=== PATIENT | female | born 1950 | race Caucasian/White ===

== ENCOUNTER 2016-06-28 00:08 | Day surgery (SDC) | payer MEDICARE ==
[~2016-06-28] VITALS: Ht 157.5 cm; Wt 52.9 kg
[2016-06-28] VITALS (16 sets, daily range): BP systolic 128–158; BP diastolic 72–89; PULSE 63–79; RESP 10–20; O2SAT 95–99
[~2016-06-28 00:08] MED LIST: ALBU8.5H2 INHALATION; AMLO5TAB2 PO; APIX5TAB PO; CHOL10008 PO; CYAN500 PO; DIVA250T12 PO; FLC50T PO; LEVO88CA2 PO; METO25TA3 PO; TRAZ-118 PO
[2016-06-28] MEDS ORDERED: MetoCLOpramide 5 mg/mL 2 mL Inj ONE (00:09)
[2016-06-28] MEDS ORDERED: Phenylephrine/NS-PF 100 mCg/mL 5 mL Syringe IVPUSH ONE (00:09)
[2016-06-28] MEDS ORDERED: Propofol 10,000 mCg/mL 20 mL Inj ONE (00:09)
[2016-06-28] MEDS ORDERED: Dexamethasone 4 mg/mL Inj ONE (00:09)
[2016-06-28] MEDS ORDERED: Ondansetron 2 mg/mL 2 mL Inj ONE (00:09)
[2016-06-28] MEDS ORDERED: fentaNYL-PF 50 mCg/mL 2 mL Inj ONE (00:09)
[2016-06-28] MEDS ORDERED: Succinylcholine Chloride 20 mg/mL 5 mL Inj ONE (00:09)
[2016-06-28] MEDS ORDERED: Rocuronium 10 mg/mL 5 mL Inj ONE (00:09)
[2016-06-28] MEDS ORDERED: Lidocaine PF 1% 30 mL Inj ONE (00:09)
[2016-06-28] MEDS ORDERED: Lactated Ringer's 1,000 ML IV SCH ×2 (05:00→12:44)
[2016-06-28] MEDS ORDERED: 0.9% Sodium Chloride 1,000 ML IV SCH (05:59)
[2016-06-28] MEDS ORDERED: Benzoc-Butamben-Tetraca Spray 20 Gm Spray TOPICAL ONE (06:00)
[2016-06-28] MEDS ORDERED: Vancomycin Inj 1,000 MG in IV Premix 1 EACH IV SCH (06:00)
[2016-06-28 06:57] LABS: BASOPHILS % (AUTO) 0.6 % (0-3); EOSINOPHILS % (AUTO) 2.7 % (0-5); INR 0.95 ratio; MONOCYTES % (AUTO) 9.5 % (4-12); Mean Corpuscular Hemoglobin 30.9 pg (27.0-35.0); Mean Corpuscular Volume 94.4 fL (81-100); NEUTROPHILS % (AUTO) 53.3 % (40-74); Platelet Count 274 bil/L (150-400)
[2016-06-28] MEDS ORDERED: Heparin 1,000 Units/500 mL NS Premix IV ONE (08:09)
[2016-06-28] MEDS ORDERED: Heparin 10,000 Unit/1,000 mL NS Premix IV ONE (08:10)
[2016-06-28] MEDS ORDERED: Heparin 1,000 Unit/mL 10 mL Inj ONE ×2 (08:10→08:24)
[2016-06-28] MEDS ORDERED: Heparin 25,000 Unit/500 mL 0.45% NS Premix IV ONE (08:10)
[2016-06-28] MEDS ORDERED: Heparin 1,000 Unit/1,000mL NS Premix IV ONE (08:10)
[2016-06-28] MEDS ORDERED: 0.9% Sodium Chloride 500 ML ONE (08:10)
--- NOTE | 2016-06-28 08:17 | PCM.HPANE ---
Patient Data Date of Service: Jun 28, 2016 Surgeon Admitting Provider: Attending Provider:Peewee Tavarez MD Primary Care Physician:Ashia Tran MD Other Provider:Gabby Byrd Anesthesia Reason for Visit Paroxysmal Atrial Fibrillation Ht/WT & BMI Height (Feet): 5 Height (Inches): 2.00 Weight (Kilograms): 53.000 Body Mass Index 21.50 Allergies Coded Allergies: Sulfa (Sulfonamide Antibiotics) (Verified Allergy, Intermediate, Rash, 06/28) Past Anesthesia History Anesthesia History: Denies:: Anesthesia Reactions, Fam Anesthesia Reaction, Fam Malignant Hypertherm, Malignant Hyperthermia Diabetes History Hx Diabetes?: No MRSA MRSA: No Medications Last Dose Blood Thinner: Jun 27, 2016 Hypertension Medication: Yes Home Meds Incl Beta Nichelle: Yes (299) Date Beta Nichelle Taken: Jun 28, 2016 Time Beta Nichelle Taken: 03:00 Reported Medications Cholecalciferol (Vitamin D3) (Vitamin D3)1,000 Unit Tab.chew1,000 Unit PO DAILY 06/27/16 Cyanocobalamin (Vitamin B12)500 Mcg Vcuzxo065 Mcg PO DAILY 06/27/16 Trazodone 100 Mg [id number] Mg PO HS Ref 0 06/27/16 Metoprolol Succinate ER (Toprol XL)25 Mg Jhzuwk05 Mg PO BID Ref 0 06/27/16 Levothyroxine (Tirosint)88 Mcg Gjkzens66 Mcg PO DAILY 06/27/16 Flecainide Acetate 50 Mg Iozrtc86 Mg PO BID 30 Days 06/27/16 Apixaban (Eliquis)5 Mg Tablet5 Mg PO BID 06/27/16 Divalproex ER 250 Mg Tab.er.90b945 Mg PO HS Ref 0 *DAILY DOSING ONLY* Swallowed whole without chewing to avoid local irritation of the mouth and throat. 06/27/16 Amlodipine 5 Mg Tablet2.5 Mg PO DAILY Ref 0 06/27/16 Albuterol HFA (Proair HFA)8.5 Gm Hfa.aer.ad2 Puffs INHALATION Q4H #1 INHALER 06/27/16 History History of ENT Problems?: No Hx of Heart Problems?: Yes Cardiovascular History: Positive for:: Chest Pain (occassional when in atrial fibrillation) Hypertension Irregular Heartbeat (intermittent atrial fibrillation) Other Cardiac History: pt here today for T.E.E. and atrial fib ablation Hx of Respiratory Problem?: No Respiratory History: Positive for:: Asthma (occassionaly uses albuterol) Other Resp Pertinent History: albuterol 1x q6mo's Neurological History: Positive for:: TIA (TIA's x 2 episodes - 2013 - no residual) Denies:: Seizures Hx of GI Problems?: No Gastrointestinal History: Positive for:: Diverticulitis Denies:: Gastroesphageal Reflux Musculoskeletal History: Positive for:: Joint Replacement (left hip replacement 2009) Hx of Psycho/Social Problems?: Yes Other Psych Pertinent History: bipolar disorder Hx Surgeries?: Yes Hx Any Other Health Problems?: No Other History: Positive for:: Hospitalization (TIA, hip surgery) History Blood Transfusions: Positive for:: Accept Blood Products? Denies:: Blood Transfusions Hx Alcohol Use: Yes (occassional)Hx Substance Use: No Stop/Bang Treated for Sleep Apnea?: Yes Do You Have a CPAP Machine?: No (non-compliant) NELSY Risk Assessment: High Risk, =/>3 Yes NELSY Category 1: Yes Risk Assessment Category Category 1A: Patient has history of documented sleep apnea, and HAS NOT received any narcotic, sedative or anesthesia administration during this stay. Category 1B: Patient has history of documented sleep apnea, and HAS received any narcotic , sedative or anesthesia administration during this stay Category 2: Patient has SUSPECTED Obstructive Sleep Apnea, and HAS received any narcotic , sedative or anesthesia administration during this stay. Category 3: Patient has SUSPECTED Obstructive Sleep Apnea and HAS NOT received narcotic, sedative or anesthesia administration during this stay. Category 4: Outpatient in Procedural Areas with known sleep apnea or who screen positive for High Risk via the STOP/BANG questionnaire. Exam Exam Vital Signs Vital Signs Date Time Temp Pulse Resp B/P Pulse Ox O2 Delivery O2 Flow Rate FiO2 06/28/16 06:33 36.6 63 10 137/74 97 Room Air General Appearance: Alert, Oriented X3, Cooperative, No Acute Distress HEENT/AIRWAY: MP 2, Neck Movement (FROM), Mouth Opening (>3), Other (TMD>3, poor dentition) Lungs: Clear to Auscultation, Clear to Percussion, Normal Air Movement Heart: Exam Unremarkable, Regular Rate/Rhythm, Normal S1, Normal S2, No Murmurs /Rubs/Gallops Meds/Labs/Diagnostics Labs Test 06/28/16 06:15 White Blood Count 6.7th/mm3 (3.8-10.1) Red Blood Count 3.95mil/mm3 (3.90-5.20) Hemoglobin 12.2g/dL (12.0-15.6) Hematocrit 37.3% (35.0-46.0) Mean Corpuscular Volume 94.4fL (81-100) Mean Corpuscular Hemoglobin 30.9pg (27.0-35.0) Mean Corpuscular Hemoglobin Concent 32.7% (32.0-37.0) Red Cell Distribution Width 12.7% (12.3-15.4) Platelet Count 274bil/L (150-400) Neutrophils (%) (Auto) 53.3% (40-74) Lymphocytes (%) (Auto) 33.8% (14-46) Monocytes (%) (Auto) 9.5% (4-12) Eosinophils (%) (Auto) 2.7% (0-5) Basophils (%) (Auto) 0.6% (0-3) Hold Purple Top Tube Received (Received) Prothrombin Time 10.1sec (8.1-12.5) Prothromb Time International Ratio 0.95ratio Hold Blue Top Tube Received (Received) Sodium Level 140mEq/L (134-144) Potassium Level 3.9mEq/L (3.5-5.2) Chloride Level 103mEq/L (97-108) Carbon Dioxide Level 26mmol/L (18-29) Blood Urea Nitrogen 13mg/dL (8-27) Creatinine 0.61mg/dL (0.57-1.00) Estimat Glomerular Filtration Rate 141mL/min (>59) Glucose Level 110mg/dL (60-99) Calcium Level 9.0mg/dL (8.5-10.1) Hold [place] Top Tube Received (Received) Plan Impression Patient chart reviewed, patient interviewed and anesthestic plan with risks, benefits, and alternatives discussed, and informed consent obtained. NPO Status: >8hrs ASA Physical Status: ASA3 Severe Disease Anesthetic Support Modalities: Arterial Line Anesthetic Plan: GA Bene/Risks/Altern/Consents: Yes HP Complete Prior to Induction: Yes Other Took metoprolol 0300 Jose Romero MD Jun 28, 2016 08:17
[2016-06-28] MEDS ORDERED: 0.9% Sodium Chloride 1,000 ML ONE ×2 (08:24→08:32)
--- NOTE | 2016-06-28 09:44 | DRSVH ---
[facility] [address] [place] [address] Echocardiogram Report Name: WAQAS HAN LStudy Date: Height: 62 in Hospital Exam Location: [facility] Weight: 117 lb Gender: Female BSA: 1.5 m2 : 1950 Age: 65 yrs BP: 137/74 mmHg Reason For Study: PRE PROCEDURE Ordering Physician: MANUEL KNIGHT Performed By: Edgar Salcedo Interpretation Summary The left ventricle is normal in size. The ejection fraction is estimated to be 55-60%. There is no LV thrombus. No thrombus is detected in the left atrial appendage. No left atrial mass or thrombus visualized. Spontaneous contrast in LA. The left atrium is mildly dilated. There is mild to moderate mitral regurgitation. Mild atherosclerotic plaque(s) in the ascending aorta. Mild atherosclerotic plaque(s) in the aortic arch. Procedure: Informed consent for Transesophageal Echocardiogram, and use of a contrast agent as needed, was obtained prior to the procedure. The patient was brought to the cardiac catheterization lab in a fasting state. Sedation was managed by anesthesiologist; see anesthesiology notes for details. A multifrequency, multiplane transesopheageal echocardiographic endoscope was inserted and manipulated in the standard fashion to achieve multiplane views. The transesophageal probe was passed without difficulty. A 2D transesophageal echocardiogram with spectral and color flow Doppler was performed. The usual views were obtained; basal, mid-esophageal, transgastric and aortic views. The patient's vital signs, including blood pressure, heart rate, pulse oximetry and cardiac rhythm were monitored throughout the procedure and remained stable. The patient tolerated the procedure well without evidence of orophangeal or esophageal trauma. Comparison is made with the echocardiogram of 05/03/16. The patient was in normal sinus rhythm during the exam. There were no complications. Left Ventricle: The left ventricle is normal in size. There is normal left ventricular wall thickness. There is no thrombus. The left ventricular ejection fraction is normal. The ejection fraction is estimated to be 55-60%. There are no focal wall motion abnormalities. Right Ventricle: The right ventricle grossly appears normal in size with probable normal systolic function. Atria: No left atrial mass or thrombus visualized. No thrombus is detected in the left atrial appendage. Spontaneous contrast in LA. The left atrium is mildly dilated. Right atrial size is normal. The interatrial septum is intact with no evidence for an atrial septal defect. Mitral Valve: The mitral valve leaflets are mildly calcified. There is mild to moderate mitral regurgitation. Aortic Valve: The aortic valve is trileaflet. The aortic valve opens well. The aortic valve is slightly calcified. lambl's excrescences seen. There is trace aortic regurgitation. Tricuspid Valve: The tricuspid valve is normal. There is trace tricuspid regurgitation. Pulmonic Valve: The pulmonic valve is not well seen, but is grossly normal. There is trace pulmonic regurgitation. Great Vessels: Mild atherosclerotic plaque(s) in the ascending aorta. Mild atherosclerotic plaque(s) in the aortic arch. Reading Physician:STACI
[2016-06-28] MEDS ORDERED: Protamine Sulfate 10 mg/mL 5 mL Inj ONE (11:47)
[2016-06-28] MEDS ORDERED: Ondansetron 2 mg/mL 2 mL Inj IVPUSH PRN ×2 (12:30→12:45)
[2016-06-28] MEDS ORDERED: HYDROcodone-APAP 5-325 mg Tablet PO PRN (12:30)
[2016-06-28] MEDS ORDERED: Lactated Ringer's 500 ML IV PRN (12:44)
[2016-06-28] MEDS ORDERED: EPHEDrine Sulfate 50 mg/mL Inj IVPUSH PRN (12:45)
[2016-06-28] MEDS ORDERED: HYDROmorphone 1 mg/mL Inj IVPUSH PRN (12:45)
[2016-06-28] MEDS ORDERED: Dexamethasone 4 mg/mL Inj IVPUSH PRN (12:45)
[2016-06-28] MEDS ORDERED: Phenylephrine 10,000 mCg/mL Inj IVPUSH PRN (12:45)
[2016-06-28] MEDS ORDERED: MetoCLOpramide 5 mg/mL 2 mL Inj IVPUSH PRN (12:45)
[2016-06-28] MEDS ORDERED: fentaNYL-PF 50 mCg/mL 2 mL Inj IVPUSH PRN (12:45)
--- NOTE | 2016-06-28 15:00 | NUR ---
Report called to Fide Pruett R.N. Patient remains in sinus rhythm. Bilateral groin sites without bleeding or oozing.Patient has had good output from his pink catheter. at bedside.
--- NOTE | 2016-06-28 15:37 | NUR ---
Admit to PCC Pt admitted to PCC room 2024 @ 1530 from [facility]. Report received from Carmen CROSS. Pt bilateral groin sites pink, soft, non-tender. Denies pain, nausea, vomiting. Bedrest until 1629. Castillo catheter draining to gravity, pale yellow urine. at bedside.
[2016-06-28] MEDS: 0.9% Sodium Chloride 1,000 ML IV SCH ×3 (15:59→22:31)
[2016-06-28] MEDS ORDERED: Albuterol 2.5 mg/3 mL Inhalation Solution NEB PRN (16:25)
[2016-06-28] MEDS: MeTOProlol XL 50 mg ER24 Tablet PO SCH (19:39)
--- NOTE | 2016-06-28 20:08 | PROCED ---
[address] [address] PROCEDURE NOTE PATIENT: WAQAS HAN : 1950 MR#: [id number] ADMIT: 06/28/2016 JOB ID: [id number] DATE OF SERVICE: 06/28/2016 PREOPERATIVE DIAGNOSIS(ES): Drug refractory paroxysmal atrial fibrillation. POSTOPERATIVE DIAGNOSIS(ES): 1. Drug refractory paroxysmal atrial fibrillation. 2. 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 PROCEDURES PERFORMED: 1. Comprehensive electrophysiology study with left atrial recordings. 2. Atrial fibrillation ablation with pulmonary vein isolation. 3. Transseptal puncture x2. 4. Intracardiac echocardiography. 5. Three-dimensional electroanatomic mapping using the CARTO 3 system. 6. Barium esophagram. 7. Fluoroscopy. SURGEON: Peewee Tavarez MD ASSISTANTS: 1. Paresh Contreras 2. Siddhartha Bui PA-C 3. Elida Hanks ANESTHESIA: General endotracheal anesthesia was undertaken for this case. INDICATION: This patient is a pleasant woman with drug refractory paroxysmal atrial fibrillation. After discussion of risks and benefits of catheter-based mapping, she opts to proceed. PROCEDURAL DESCRIPTION: Following informed consent, the patient was taken to the EP lab where she was prepped and draped in usual sterile fashion. She underwent a preprocedural transesophageal echocardiogram by Dr. Elizalde, confirming lack of intracardiac thrombus. Please see separate dictated report for the details of that procedure. The bilateral groins were then infiltrated with 1% lidocaine. Then, using the modified Seldinger technique, two 8-Kyrgyz sheaths were inserted through the right femoral vein, 7 and a 10.5-Kyrgyz sheaths were inserted through the left femoral vein. Under fluoroscopic guidance, a deflectable decapolar catheter was advanced through the coronary sinus with the most proximal bipolar at the os of the sinus. An intracardiac echocardiography probe was advanced to the RV outflow tract and was used to visualize the pericardial space. No effusion was noted. The ICE probe was pulled back into the right atrium and used to visualize the interatrial septum and assist in transseptal puncture. Two transseptal punctures were performed in an identical fashion using the short 8-Kyrgyz sheaths which were exchanged over a long wire for a AnonymAsk sheath dilator and Brockenbrough needle. The entire system was then used to engage the interatrial septum. Then, under fluoroscopic pressure and ICE guidance, the septum was traversed twice to deploy the two Ling sheaths into the left atrium. The patient was heparinized for a goal ACT of 350-400 seconds for the entire time we were in the left atrium following the 1st and basically the 2nd transseptal puncture. A re-survey of the pericardial space showed no evidence of effusion. Through the two Ling sheaths a J curve irrigated SmartTouch ablation catheter was advanced as was a PentaRay 20 pole catheter. A three-dimensional electroanatomic map of the left atrium and four pulmonary veins was created using the CARTO 3 system. The patient was in sinus rhythm at the onset of the case. The four pulmonary veins were then targeted for entrance and exit block. A barium esophagram was performed prior to the onset of ablation. The esophagus was closest to the posterior aspect of the left lower and right lower pulmonary veins. Entrance and exit block was achieved in the left upper, left lower and right upper pulmonary vein. The right lower pulmonary vein posterior aspect was quite close to the esophagus and even low wattage sánchez here led to increase in temperature. I therefore did not fully isolate this right lower pulmonary vein. We then disengaged from the left atrium, reversed the patient's heparin with protamine, and resurveyed the pericardial space that showed no evidence of effusion. During the course of this study, we did complete a comprehensive electrophysiology study with right atrial pacing recording, right ventricular pacing recording, His bundle recording, and left atrial pacing recording through the coronary sinus catheter. All catheters and sheaths were removed. Manual pressure was held for hemostasis. The patient was transferred to the [facility] for recovery and bed rest. During the course of this study, the patient on multiple occasions went into a different rhythm with a 1-2 AV ratio. Antegrade conduction showed dual AV josr physiology. Retrograde conduction showed no VA conduction. Each ventricular instance was preceded by a His bundle at a fixed HV interval. This was consistent with likely junctional bigeminy. No right atrial ablation was performed. COMPLICATIONS: None. ESTIMATED BLOOD LOSS: 20-30 cc. FINDINGS: 1. Baseline rhythm is sinus with an RR interval of 966 msec, FL 182 msec, QRS 88 msec, QT 401 msec. 2. Intracardiac intervals: AH interval is 84 msec, HV interval 41 msec. 3. Retrograde conduction. No VA conduction was seen. 4. Dual AV josr physiology was identified during the case. 5. Pulmonary vein isolation with entrance and exit block in the left pulmonary veins as well as the right upper pulmonary vein and the right lower pulmonary vein was too close to the esophagus for safe burning and was not fully isolated. 6. 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 IMPRESSION: Successful pulmonary vein isolation with unmasking of junctional bigeminy and dual AV josr physiology. PLAN: 1. Bed rest x 4 hours. 2. Continue current medication regimen with the exception of increasing metoprolol dosage to 50 mg twice daily succinate. 3. Protonix 40 mg p.o. daily x1 month. 4. Monitoring overnight. 5. Follow up with me in clinic in 3-4 weeks. ATTENDING STATEMENT: Peewee Tavarez MD, electrophysiology attending, was present for and supervised/performed all aspects of this procedure.
[2016-06-28] MEDS ORDERED: Divalproex (QD) 500 mg ER24 Tablet PO SCH (21:00)
[2016-06-29 03:39] VITALS: BP 124/76; PULSE 75; RESP 20; O2SAT 98
[2016-06-29 05:42] VITALS: PULSE 81
--- NOTE | 2016-06-29 05:48 | NUR ---
Cardiac: Tele SR 60s- pt did have 2-4 sec run of PSVT- pt asymptomatic. Bilateral groin asymptomatic- pt denies any pain. Vitals stable. Care ongoing.
[2016-06-29] MEDS ORDERED: Pantoprazole 40 mg ER24 Tablet PO SCH (06:30)
[2016-06-29 08:00] VITALS: PULSE 74
[2016-06-29 08:03] VITALS: BP 123/80; PULSE 75; RESP 16; O2SAT 96
[2016-06-29] MEDS: MeTOProlol XL 50 mg ER24 Tablet PO SCH (08:17)
--- NOTE | 2016-06-29 08:52 | PCM.ANEP2 ---
Post Anesthesia Evaluation ASA/CMS Post Anesthesia VS in Patient's Normal Range?: Yes Resp Stable; Airway Patent?: Yes CV Function & Hydration Stable: Yes Mental Status Recovered?: Yes Pain control Satisfactory?: Yes N/V Control Satisfactory?: Yes Jose Romero MD Jun 29, 2016 08:52
--- NOTE | 2016-06-29 08:52 | PCM.ANEP1 ---
Post Anesthesia Phase 1 PACU Phase 1 Assessment Date of Service: Jun 28, 2016 Vital Signs Vital Signs Date Time Temp Pulse Resp B/P Pulse Ox O2 Delivery O2 Flow Rate FiO2 06/29/16 08:03 37.0 75 16 123/80 96 Room Air 06/29/16 05:42 81 06/29/16 03:39 37.1 75 20 124/76 98 Room Air Anesthetic Administered: GA Level of Alertness: Awake, talking HARVEY's with Equal Strength: Yes Pain: No Pain Scale Score: 0 Nausea or Vomiting: No Oxygen Delivery: Simple Mask Lungs: Clear to Auscultation, Clear to Percussion, Normal Air Movement Jose Romero MD Jun 29, 2016 08:52
--- NOTE | 2016-06-29 08:54 | PCM.DIMED ---
Discharge Instructions Date of Service Jun 29, 2016 Dates of Hospitalization Discharge Diagnosis Discharge Diagnosis Paroxysmal Atrial Fibrillation Atrial Tachycardia Diet No restrictions Activity Other (To prevent infection, do not sit in a bath tub, hot tub or pool for 5 days. To prevent bleeding, do not lift, push or pull more than 10 lbs for 5 days.) Call your provider Fever or Chills, Bleeding, Excessive diarrhea, Weakness (unilateral) Patient Instructions Mid-level Provider (F9): Siddhartha Bui PA-C Follow-up with Mid-level in: 4 weeks (Appt on 07-27-16 at 4:00 (arrival time)) Siddhartha Bui PA-C Jun 29, 2016 08:54
[2016-06-29] MEDS ORDERED: METO-272 PO (09:16)
[2016-06-29] MEDS ORDERED: PANT40TA3 PO (09:17)
--- NOTE | 2016-06-29 10:55 | DIS ---
[address] [address] DISCHARGE SUMMARY PATIENT: WAQAS HAN : 1950 MR#: [id number] ADMIT: 06/28/2016 JOB ID: [id number] DIS: 06/29/2016 REASON FOR ADMISSION: Atrial fibrillation ablation procedure. CHIEF COMPLAINT: Paroxysmal tachycardia with symptoms of fatigue and shortness of breath. BRIEF HISTORY: The patient is a pleasant 65-year-old woman with a structurally normal heart and no significant valvular heart disease who is plagued by highly symptomatic paroxysmal atrial fibrillation. She frequently has episodes when doing any activity at home and these episodes lead to palpitations, fatigue and shortness of breath, but not chest pain or discomfort. Her ECG recordings have also showed the possibility of atrial flutter or paroxysmal atrial tachycardia. She has been treated with flecainide and beta blockade and remains symptomatic with arrhythmias. COURSE IN HOSPITAL: The patient was admitted through the [facility] and taken to the oil field laborer, where she was placed under general anesthesia by an anesthesiologist. She then had a MARK which showed no evidence of left atrial thrombus. The ablation procedure was then undertaken and completed without incident. After the IV heparin was stopped and reversed with protamine, the femoral venous sheaths were removed, hemostasis was obtained and she was awakened from the anesthesia. The patient was then transferred back to the [facility] for further recovery prior to being transferred to the second floor telemetry unit for overnight observation. She did well overnight and the Castillo catheter was removed and she was able to void her bladder successfully. In the morning she was ambulatory without difficulty, had had no bleeding from the femoral access sites and felt well for discharge home. She had no complaints of chest pain, dyspnea, lightheadedness or palpitations. DISPOSITION: The patient was discharged home in good condition with a followup appointment at the [facility] Cardiology office in one month. To prevent bleeding, she was asked not to lift, push or pull more than 10 pounds for five days and to prevent infection she was asked to not sit in a bathtub, hot tub or pool for five days. She will follow her regular diet and take medications as prescribed. DISCHARGE MEDICATIONS: 1. Metoprolol succinate, dose increased to 50 mg b.i.d. 2. Pantoprazole 40 mg daily for 1 month only. 3. Albuterol ProAir HFA 2 puffs q.4 h. as needed. 4. Amlodipine 2.5 mg daily. 5. Apixaban 5 mg b.i.d. 6. Vitamin D3, 1000 units daily. 7. Vitamin B12, 500 mcg daily. 8. Divalproex ER 500 mg q.h.s. 9. Flecainide 25 mg b.i.d. 10. Levothyroxine 88 mcg daily. 11. Trazodone 100 mg q.h.s. FINAL DIAGNOSIS: 1. Paroxysmal, symptomatic atrial fibrillation. 2. Atrial tachycardia, possible junctional bigeminy.
--- NOTE | 2016-06-29 11:30 | NUR ---
Discharge Pt IV's dc'd intact, telemetry removed and tech notified. Pt discharged to home with transportation by her spouse. Discharge instructions, follow up appointments and new medications were reviewed. All patient questions answered, pt voiced understanding. Pt's belongings were gathered for transport with patient. Pt was escorted off unit by her to their Personal vehicle.
== END 2016-06-29 11:17 | disposition home or self-care (01) ==
LOC: SOUO 00:08 → PCC 15:18 → SOUO 06-29 11:17
PROVIDERS: ATTEND Internal Medicine Cardiovascular Disease
DX: I48.0 Paroxysmal atrial fibrillation (principal); I47.1 Supraventricular tachycardia
CPT/HCPCS: 36415; 80048; 85025; 85610; 93005; 93613; 93656; 93662; C1730; C1732; C1759; C1769; C1894; C8925; J0330; J1100; J1644; J2175; J2250; J2370; J2405; J2720; J2765; J3010; J7030; J7040